=== PATIENT | female | born 1955 | race Two or more races ===

== ENCOUNTER 2017-11-27 13:41 | Emergency (ER) | payer OTHER ==
[~2017-11-27] VITALS: Ht 157.5 cm; Wt 59.0 kg
[2017-11-27 13:49] VITALS: BP 147/81
[2017-11-27] MEDS ORDERED: KETOROLAC TROMETHAMINE INJ 30 MG/ML VIAL ONE (14:29)
[2017-11-27] MEDS ORDERED: HYDROCODONE/APAP 5/325MG 1 EACH TABLET ONE (14:29)
[2017-11-27] MEDS ORDERED: ONDANSETRON 4 MG TAB.RAPDIS ONE (14:30)
[2017-11-27] MEDS ORDERED: ONDANSETRON 4 MG TAB.RAPDIS PO ONE (14:30)
[2017-11-27] MEDS ORDERED: KETOROLAC TROMETHAMINE INJ 60 MG/2 ML VIAL IM ONE (14:30)
[2017-11-27] MEDS ORDERED: HYDROCODONE/APAP 5/325MG 1 EACH TABLET PO ONE (14:30)
== END 2017-11-27 16:22 | disposition home or self-care (01) ==
LOC: ER 13:47
DX: M17.9 Osteoarthritis of knee, unspecified (principal)
CPT/HCPCS: 73564-TC; 93971-TC; A4606; J1885; Q0162; Z7610

== ENCOUNTER 2023-11-10 06:40 | Inpatient (IN) | payer MEDICARE, OTHER ==
[~2023-11-10] VITALS: Ht 162.6 cm; Wt 102.5 kg
[2023-11-10] MEDS ORDERED: VANCOMYCIN 1 GM VIAL ONE (07:15)
[2023-11-10] MEDS ORDERED: ANESTHESIA TRAY IN PYXIS 1 EA TRAY MC ONE (07:15)
[2023-11-10] MEDS ORDERED: FENTANYL PF 100MCG/2ML AMPUL ONE (07:15)
[2023-11-10] MEDS ORDERED: dexaMETHasone SOD PHOSPHATE 2 ML ONE (07:15)
[2023-11-10] MEDS ORDERED: OXYMETAZOLINE HCL NASAL SPRAY 30 ML BOTTLE NS ONE (07:15)
[2023-11-10] MEDS ORDERED: MIDAZOLAM HCL 2 MG/2ML VIAL ONE (07:15)
[2023-11-10] MEDS ORDERED: LIDOCAINE 2%-EPI 1:100,000 30 ML VIAL ONE (07:15)
[2023-11-10] MEDS ORDERED: FAMOTIDINE/PF INJ 20 MG/2 ML VIAL IV ONE (07:16)
[2023-11-10] MEDS ORDERED: ROCURONIUM BROMIDE 50 MG/5 ML ONE (07:16)
[2023-11-10] MEDS ORDERED: MEPERIDINE25 MG SYR 25 MG/ML VIAL ONE (09:31)
[2023-11-10 10:50] VITALS: BP 131/75; O2SAT 96
[2023-11-10] MEDS ORDERED: HYDROMORPHONE 1 MG/1 ML DISP.SYRIN IV PRN (12:00)
[2023-11-10] MEDS ORDERED: ONDANSETRON HCL/PF 4 MG/2 ML VIAL IVP PRN (12:00)
[2023-11-10] MEDS: IV NS 0.9% 1,000 ML IV PRN (13:01)
[2023-11-10] MEDS ORDERED: LIDOCAINE VISCOUS 2% UD 15 ML UDC MM PRN (13:30)
[2023-11-10] MEDS ORDERED: MENTHOL/CETYLPYRD (CEPACOL) 1 LOZ LOZENGE PO PRN (13:30)
[2023-11-10] MEDS ORDERED: MAGNESIUM HYDROXIDE 30 ML UDC PO PRN (13:30)
[2023-11-10] MEDS ORDERED: ASPI-1420 PO (14:41)
[2023-11-10] MEDS ORDERED: LISI20TA30 PO (14:41)
[2023-11-10] MEDS ORDERED: MECL-159 PO (14:41)
[2023-11-10] MEDS: ACETAMINOPHEN 325 MG TABLET PO PRN (15:55)
[2023-11-10 16:33] VITALS: BP 139/79; TEMP 98.2; O2SAT 95
[2023-11-10 16:34] VITALS: BP 118/64; TEMP 98.1; O2SAT 98
[2023-11-10 20:00] VITALS: BP 108/59; TEMP 97.9; O2SAT 99
[2023-11-10] MEDS: VANCOMYCIN 1 GM in IV D5W 250ml IV SCH (20:03)
[2023-11-11 07:39] LABS: BASOPHILS % (AUTO) 0.1 % (0.0-2.0); HEMATOCRIT 35 % (33-45); HEMOGLOBIN 11.3 g/dL (11.5-14.8); LYMPHOCYTES # (AUTO) 1.4 K/uL (0.8-4.8); MEAN CORPUSCULAR HEMOGLOBIN 32 PG (26.0-33.0); MEAN CORPUSCULAR HGB CONC 33 g/dl (31.0-36.0); MEAN CORPUSCULAR VOLUME 96 fL (82-100); MONOCYTES # (AUTO) 0.8 K/uL (0.1-1.30); MONOCYTES % (AUTO) 6.5 % (2.0-12.0); NEUTROPHILS # (AUTO) 9.4 K/uL (1.8-8.9); NEUTROPHILS % (AUTO) 81.4 % (43.0-81.0); PLATELET COUNT (AUTO) 215 K/uL (150-450); RED BLOOD CELL COUNT(AUTO) 3.59 MIL/uL (4.0-5.2); RED CELL DISTRIBUTION WIDTH 13.2 % (11.5-15.0); WHITE BLOOD COUNT (AUTO) 11.6 K/uL (4.3-11.0)
[2023-11-11 07:58] LABS: CALCIUM, SERUM 9.1 mg/dL (8.5-10.1); CREATININE 0.5 mg/dL (0.6-1.3); MAGNESIUM 2.2 mg/dL (1.8-2.4); PHOSPHORUS 3.9 mg/dL (2.5-4.9)
[2023-11-11 08:00] VITALS: BP 110/81; TEMP 97.7; O2SAT 99
== END 2023-11-11 10:15 | disposition home or self-care (01) | DRG 141 ==
LOC: DS 06:40 → MED 11:07
PROVIDERS: ADMIT Nurse Practitioner Family; ATTEND Nurse Practitioner Family
PROC: 0NSR04Z Reposition Maxilla with Internal Fixation Device, Open Approach (ICD-10-PCS; principal; 2023-11-10)
PROC: 0NUV0JZ Supplement Left Mandible with Synthetic Substitute, Open Approach (ICD-10-PCS; 2023-11-10)
PROC: 0NUR07Z Supplement Maxilla with Autologous Tissue Substitute, Open Approach (ICD-10-PCS; 2023-11-10)
PROC: 0NBV0ZX Excision of Left Mandible, Open Approach, Diagnostic (ICD-10-PCS; 2023-11-10)
PROC: 0NBR0ZX Excision of Maxilla, Open Approach, Diagnostic (ICD-10-PCS; 2023-11-10)
DX: S02.40DA Maxillary fracture, left side, initial encounter for closed fracture (principal); T81.83XA Persistent postprocedural fistula, initial encounter; S02.40CA Maxillary fracture, right side, initial encounter for closed fracture; M27.2 Inflammatory conditions of jaws; S02.69XA Fracture of mandible of other specified site, initial encounter for closed fracture; D16.4 Benign neoplasm of bones of skull and face; E78.5 Hyperlipidemia, unspecified; H26.9 Unspecified cataract; I10 Essential (primary) hypertension; X58.XXXA Exposure to other specified factors, initial encounter; Y93.9 Activity, unspecified; Y92.009 Unspecified place in unspecified non-institutional (private) residence as the place of occurrence of the external cause; J32.0 Chronic maxillary sinusitis
CPT/HCPCS: 36415; 80048-TC; 83735-TC; 84100-TC; 85025-TC; A4223; C1713; G0378; J1100; J2175; J2250; J2405; J2704; J2765; J3010; J3370; J3490; J7030; J7060

== ENCOUNTER 2024-03-15 08:56 | Inpatient (IN) | payer MEDICARE, OTHER ==
[~2024-03-15] VITALS: Ht 152.4 cm; Wt 60.6 kg
[~2024-03-15 08:56] MED LIST: ASPI-1420 PO; LISI20TA30 PO; MECL-159 PO
[2024-03-15] MEDS ORDERED: LIDOCAINE 2%-EPI 1:100,000 30 ML VIAL ONE (12:13)
[2024-03-15] MEDS ORDERED: dexaMETHasone SOD PHOSPHATE 2 ML ONE (12:14)
[2024-03-15] MEDS ORDERED: VANCOMYCIN 1 GM VIAL ONE (12:14)
[2024-03-15] MEDS ORDERED: FENTANYL PF 100MCG/2ML AMPUL ONE (14:33)
[2024-03-15] MEDS ORDERED: HYDROMORPHONE 1 MG/1 ML DISP.SYRIN IV PRN (15:00)
[2024-03-15] MEDS ORDERED: ACETAMINOPHEN 325 MG TABLET PO PRN (15:00)
[2024-03-15] MEDS ORDERED: ONDANSETRON HCL/PF 4 MG/2 ML VIAL IV PRN (15:00)
[2024-03-15] MEDS ORDERED: KETOROLAC TROMETHAMINE INJ 30 MG/ML VIAL ONE ×2 (15:02→15:05)
[2024-03-15 16:00] VITALS: BP 142/60; TEMP 98.2; O2SAT 100
[2024-03-15] MEDS: IV NS 0.9% 1,000 ML IV PRN (16:07)
[2024-03-15] MEDS ORDERED: ONDANSETRON HCL/PF 4 MG/2 ML VIAL IVP PRN (18:00)
[2024-03-15] MEDS ORDERED: MECLIZINE HCL 25 MG TABLET PO PRN (18:00)
[2024-03-15 20:00] VITALS: BP 120/62; TEMP 97.7; O2SAT 96
[2024-03-15 20:17] VITALS: BP 120/62; TEMP 97.7; O2SAT 96
[2024-03-15] MEDS: VANCOMYCIN 1 GM in IV D5W 250ml IV SCH (21:24)
[2024-03-15] MEDS: ACETAMINOPHEN 325 MG TABLET PO PRN (23:17)
[2024-03-16 06:32] LABS: HEMATOCRIT 34 % (33-45); HEMOGLOBIN 11.6 g/dL (11.5-14.8); LYMPHOCYTES # (AUTO) 0.7 K/uL (0.8-4.8); LYMPHOCYTES % (AUTO) 11.8 % (20.0-44.0); MEAN CORPUSCULAR HEMOGLOBIN 32 PG (26.0-33.0); MEAN CORPUSCULAR HGB CONC 34 g/dl (31.0-36.0); MEAN CORPUSCULAR VOLUME 94 fL (82-100); MONOCYTES # (AUTO) 0.1 K/uL (0.1-1.30); MONOCYTES % (AUTO) 2.3 % (2.0-12.0); NEUTROPHILS # (AUTO) 5.3 K/uL (1.8-8.9); NEUTROPHILS % (AUTO) 85.9 % (43.0-81.0); PLATELET COUNT (AUTO) 229 K/uL (150-450); RED BLOOD CELL COUNT(AUTO) 3.65 MIL/uL (4.0-5.2); WHITE BLOOD COUNT (AUTO) 6.2 K/uL (4.3-11.0)
[2024-03-16 06:43] LABS: CALCIUM, SERUM 9.2 mg/dL (8.5-10.1); CREATININE 0.5 mg/dL (0.6-1.3); MAGNESIUM 2.1 mg/dL (1.8-2.4); PHOSPHORUS 3.2 mg/dL (2.5-4.9); POTASSIUM 3.9 mmol/L (3.5-5.1)
[2024-03-16] MEDS: ASPIRIN EC 81 MG TABLET.DR PO SCH (08:22)
[2024-03-16] MEDS: LISINOPRIL (20MG) 20 MG TABLET PO SCH (08:23)
[2024-03-16 08:30] VITALS: BP 141/68; TEMP 97.9; O2SAT 97
== END 2024-03-16 10:30 | disposition home or self-care (01) | DRG 908 ==
LOC: DS 08:56 → MED 16:05
PROVIDERS: ADMIT Nurse Practitioner Acute Care; ATTEND Nurse Practitioner Acute Care
PROC: 0NPW04Z Removal of Internal Fixation Device from Facial Bone, Open Approach (ICD-10-PCS; principal; 2024-03-15)
PROC: 0NUR07Z Supplement Maxilla with Autologous Tissue Substitute, Open Approach (ICD-10-PCS; 2024-03-15)
PROC: 0NUT07Z Supplement Right Mandible with Autologous Tissue Substitute, Open Approach (ICD-10-PCS; 2024-03-15)
PROC: 0NBT0ZZ Excision of Right Mandible, Open Approach (ICD-10-PCS; 2024-03-15)
PROC: 0NBR0ZZ Excision of Maxilla, Open Approach (ICD-10-PCS; 2024-03-15)
PROC: 0NST0ZZ Reposition Right Mandible, Open Approach (ICD-10-PCS; 2024-03-15)
DX: T86.831 Bone graft failure (principal); S02.69XK Fracture of mandible of other specified site, subsequent encounter for fracture with nonunion; T84.69XA Infection and inflammatory reaction due to internal fixation device of other site, initial encounter; T81.83XA Persistent postprocedural fistula, initial encounter; E78.5 Hyperlipidemia, unspecified; I10 Essential (primary) hypertension; K12.30 Oral mucositis (ulcerative), unspecified; M27.2 Inflammatory conditions of jaws; Y83.2 Surgical operation with anastomosis, bypass or graft as the cause of abnormal reaction of the patient, or of later complication, without mention of misadventure at the time of the procedure; Y92.009 Unspecified place in unspecified non-institutional (private) residence as the place of occurrence of the external cause; M27.49 Other cysts of jaw; M89.38 Hypertrophy of bone, other site
CPT/HCPCS: 36415; 80048-TC; 83735-TC; 84100-TC; 85025-TC; 88300-TC; 88305-TC; 88311-TC; 88312-TC; A4223; A4338; C1713; G0378; J0690; J1100; J1885; J2704; J3010; J3370; J3490; J7030; J7060

== ENCOUNTER 2025-04-03 21:22 | Emergency (ER) | payer MEDICARE, OTHER | END 2025-04-03 22:40 | disposition left against medical advice (07) | LOC: ER 21:26 | DX: M79.672 Pain in left foot (principal); Z53.21 Procedure and treatment not carried out due to patient leaving prior to being seen by health care provider ==